=== PATIENT | female | born 1990 | race Caucasian/White ===

== ENCOUNTER → 2018-07-05 14:11 | Outpatient (BNVA) | payer MEDICARE, MEDICAID, SELFPAY | PROVIDERS: PCP Family Medicine; Visit Provider Psychiatry & Neurology Neurology | DX: G91.9 Hydrocephalus, unspecified (principal); I10 Essential (primary) hypertension | CPT/HCPCS: 99213 ==

== ENCOUNTER 2018-08-31 13:51 | Outpatient (REF) | payer MEDICARE, MEDICAID, SELFPAY ==
--- NOTE | 2018-08-31 13:00 | PAPFT_PTH ---
PATIENT: Radha Rodrigues LOC: [facility] U#:[id number] AGE/SX: 28/F ROOM: RE08/31/[address]: [place] : 1990 BED: DIS: 08/31/2018 SPEC #: [id number] RECD: 08/31/18 18:16 STATUS: ECTOR REQ #: [id number] IDA: 08/31/18 13:[address]: Nevaeh Menchaca [facility] Cytology RECD BY: Cyndie Olivier ENTERED: 08/31/18 18:16 SP TYPE: PAPFT IFEOMA DR: Jazmyne Avalos MD Tissues: 1 - CX/ENDOCX FOR PAP SMEARS Procedures: PAP THIN PREP/UVM Screening HPV DNA PROBE Comments: [id number]
== END 2018-08-31 14:11 ==
LOC: LBN 13:51
PROVIDERS: PCP Family Medicine; Visit Provider Nurse Practitioner Family
DX: Z12.4 Encounter for screening for malignant neoplasm of cervix (principal); Z11.51 Encounter for screening for human papillomavirus (HPV)
CPT/HCPCS: 88142; 87624

== ENCOUNTER 2018-12-21 01:20 | Outpatient (CLI) | payer MEDICARE, MEDICAID, SELFPAY ==
[2018-12-21 13:55] LABS: TSH 3.83 uIU/mL (0.358-3.74)
== END 2018-12-21 01:40 ==
PROVIDERS: PCP Family Medicine; Visit Provider Family Medicine
DX: E03.9 Hypothyroidism, unspecified (principal)
CPT/HCPCS: 36415; 84443

== ENCOUNTER → 2019-07-04 13:59 | Outpatient (BNVA) | payer MEDICARE, MEDICAID, SELFPAY | PROVIDERS: PCP Family Medicine; Referring Provider Family Medicine; Visit Provider Psychiatry & Neurology Neurology | DX: G91.9 Hydrocephalus, unspecified (principal); E66.9 Obesity, unspecified | CPT/HCPCS: 99214 ==

== ENCOUNTER 2019-10-16 07:00 | Outpatient (CLI) | payer MEDICARE, MEDICAID, SELFPAY ==
[2019-10-16 12:53] LABS: ALT 23 U/L (14-59); AST 12 U/L (15-37); Albumin 3.9 g/dL (3.4-5.0); Alkaline Phosphatase 70 U/L (46-116); Anion Gap 7.1 mmol/L (3-11); BUN 17 mg/dL (7-18); Bilirubin, Total 0.6 mg/dL (0.2-1.0); CO2 28.9 mmol/L (21.0-32.0); CREATININE 1.02 mg/dL (0.55-1.02); Calcium 8.6 mg/dL (8.5-10.1); Calculated LDL 118 mg/dL (<100); Chloride 105 mmol/L (98-107); Cholesterol 210 mg/dL (<200); Glucose 83 mg/dL (74-106); HDL Cholesterol 51 mg/dL (40-60); Potassium 4.9 mmol/L (3.5-5.1); Sodium 141 mmol/L (136-145); Triglyceride 209 mg/dL (<150)
== END 2019-10-16 07:20 ==
PROVIDERS: PCP Family Medicine; Visit Provider Family Medicine
DX: E03.9 Hypothyroidism, unspecified (principal); R53.83 Other fatigue; F31.9 Bipolar disorder, unspecified; E66.9 Obesity, unspecified
CPT/HCPCS: 36415; 80053; 80061; 84443

== ENCOUNTER → 2020-07-09 13:16 | Outpatient (BNVA) | payer MEDICARE, MEDICAID, SELFPAY | PROVIDERS: PCP Family Medicine; Referring Provider Family Medicine; Visit Provider Psychiatry & Neurology Neurology | DX: G91.8 Other hydrocephalus (principal); G80.9 Cerebral palsy, unspecified; R26.9 Unspecified abnormalities of gait and mobility; I10 Essential (primary) hypertension | CPT/HCPCS: 99213 ==

== ENCOUNTER 2020-09-29 18:12 | Outpatient (REF) | payer MEDICARE, MEDICAID, SELFPAY ==
[2020-09-29 21:14] LABS: HCT 47.2 % (36.0-46.0); HGB 15.2 g/dL (11.2-15.7); MCHC 32.2 % (32.0-36.0); MCV 87.1 fL (80-95); Platelet Count 235 10^3/uL (130-400); RBC 5.42 10^6/uL (3.93-5.22); RDW 13.7 % (11.7-14.6); RDW-SD 43.8 fL; WBC 10.65 10^3/uL (4.4-10.8)
[2020-09-29 21:47] LABS: Ferritin 196 ng/mL (8-252); Magnesium 1.7 mg/dL (1.8-2.4); TSH 2.63 uIU/mL (0.36-3.74)
[2020-09-29 22:30] LABS: Iron 41 ug/dL (50-170); Total Iron Binding Capacity 270 ug/dL (250-450); Transferrin Sat 15 % (15-50)
[2020-09-30 17:57] LABS: FSH 5.4 mIU/mL (See Note); LH 8.9 mIU/mL (See Note)
[2020-10-03 19:07] LABS: 17-Hydroxyprogesterone <40 ng/dL
== END 2020-09-29 18:32 ==
LOC: NCHCN 18:12
PROVIDERS: Nurse Practitioner Family; PCP Family Medicine; Visit Provider Family Medicine
DX: R63.8 Other symptoms and signs concerning food and fluid intake (principal); Z86.2 Personal history of diseases of the blood and blood-forming organs and certain disorders involving the immune mechanism; E83.42 Hypomagnesemia; E03.9 Hypothyroidism, unspecified
CPT/HCPCS: 85027; 82728; 83001; 83002; 83498; 83540; 83550; 83735; 84146; 84443

== ENCOUNTER → 2021-09-22 13:02 | Outpatient (BNVA) | payer MEDICARE, MEDICAID, SELFPAY | PROVIDERS: PCP Family Medicine; Referring Provider Family Medicine; Visit Provider Psychiatry & Neurology Neurology | DX: G91.9 Hydrocephalus, unspecified (principal); G80.9 Cerebral palsy, unspecified; Z98.2 Presence of cerebrospinal fluid drainage device | CPT/HCPCS: 99213 ==

== ENCOUNTER 2024-06-08 20:06 | Emergency (ER) | payer MEDICARE, MEDICAID, SELFPAY ==
--- NOTE | 2024-06-08 20:35 | W.ED.GENAD ---
Discharge Plan Discharge Details Chief Complaint: PsychEval Primary Care Provider: Yuniel Carrasco ED Provider: Smith Tripathi Home Meds and New Rx's Prescriptions: No Action sertraline 100 mg tablet 100 mg PO DAILY quetiapine [Seroquel] 100 mg tablet 100 mg PO QHS norethindrone (contraceptive) 0.35 mg tablet 0.35 mg PO DAILY quetiapine [Seroquel] 25 mg tablet 50 mg PO DAILY PRN acetaminophen [Tylenol] 325 MG tablet 2 tab PO PRN prazosin 1 MG capsule 1 mg PO HS trazodone 50 MG tablet 50 mg PO HS magnesium hydroxide [Milk of Magnesia] 400 MG/5 ML suspension 30 ml PO PRN Lastacaft 0.25 % drops 1 drp Ophthalmic DAILY PRN (Reason: itching) Qty: 2 fexofenadine 180 mg tablet 180 mg PO DAILY Qty: 90 4RF ascorbic acid (vitamin C) 500 mg tablet 500 mg PO DAILY Qty: 90 3RF levothyroxine 25 mcg tablet 25 mcg PO DAILY Qty: 90 3RF ferrous sulfate 325 mg (65 mg iron) tablet 325 mg PO DAILY Qty: 90 1RF Rx Instructions: take one tablet daily cholecalciferol (vitamin D3) 50 mcg (2,000 unit) capsule 50 mcg PO DAILY Qty: 90 3RF HPI General Date/Time Provider Initiated Documentation: 06/08/24 20:09. Information obtained by: patient. History of Present Illness 34 year old F presents to the emergency department with the chief complaint of thoughts of self harm, Patient started experiencing this month(s) (1) and it has been constant. No relieving factors improve symptom(s), No exacerbating factors reported . Patient notes no other symptoms.. Patient did receive the following treatments prior to arrival, none Related Data Home Medications ?Medication ?Instructions ?Recorded ?Confirmed acetaminophen 325 mg tablet 2 tab PO PRN 12/28/12 09/22/21 (Tylenol) prazosin 1 mg capsule 1 mg PO HS 07/10/14 09/22/21 trazodone 50 mg tablet 50 mg PO HS 12/25/14 09/22/21 magnesium hydroxide 400 mg/5 mL 30 ml PO PRN 05/10/17 09/22/21 oral suspension (Milk of Magnesia) alcaftadine 0.25 % eye drops 1 drp ophthalmic (eye) DAILY PRN 10/02/19 09/22/21 (Lastacaft) itching ##2 quetiapine 100 mg tablet (Seroquel) 100 mg PO QHS 09/29/20 09/22/21 sertraline 100 mg tablet 100 mg PO DAILY 09/29/20 09/22/21 fexofenadine 180 mg tablet 180 mg PO DAILY #90 tabs 04/29/21 09/22/21 ascorbic acid (vitamin C) 500 mg 500 mg PO DAILY #90 tabs 05/29/21 09/22/21 tablet norethindrone (contraceptive) 0.35 0.35 mg PO DAILY 06/08/21 09/22/21 mg tablet quetiapine 25 mg tablet (Seroquel) 50 mg PO DAILY PRN 06/08/21 09/22/21 levothyroxine 25 mcg tablet 25 mcg PO DAILY #90 tab-caps 07/21/21 09/22/21 ferrous sulfate 325 mg (65 mg 325 mg PO DAILY #90 tabs 09/14/21 09/22/21 iron) tablet cholecalciferol (vitamin D3) 50 50 mcg PO DAILY #90 caps 10/13/21 mcg (2,000 unit) capsule Previous Rx's ?Medication ?Instructions ?Recorded fexofenadine 180 mg tablet 180 mg PO DAILY #90 tabs 04/29/21 ascorbic acid (vitamin C) 500 mg 500 mg PO DAILY #90 tabs 05/29/21 tablet levothyroxine 25 mcg tablet 25 mcg PO DAILY #90 tab-caps 07/21/21 ferrous sulfate 325 mg (65 mg 325 mg PO DAILY #90 tabs 09/14/21 iron) tablet cholecalciferol (vitamin D3) 50 50 mcg PO DAILY #90 caps 10/13/21 mcg (2,000 unit) capsule Allergies Allergy/AdvReac Type Severity Reaction Status Date / Time amoxicillin trihydrate (From Allergy Unknown unknown Verified 09/22/21 13:06 Augmentin) doxycycline Allergy Unknown rash Verified 09/22/21 13:06 potassium clavulanate (From Allergy Unknown unknown Verified 09/22/21 13:06 Augmentin) General Stated Complaint: PsychEval KOTA: 2 Review of Systems All systems reviewed & are unremarkable except as noted in HPI and below Constitutional Constitutional: Denies chills, Denies fever(s) and Denies weakness Cardiovascular Cardiovascular: Denies chest pain and Denies dyspnea Respiratory Respiratory: Denies cough and Denies dyspnea Gastrointestinal Gastrointestinal: Denies abdominal pain, Denies nausea and Denies vomiting Neurologic Neurologic: Denies weakness Psychiatric Psychiatric: Reports depression Exam Const General: no acute distress Orientation: alert HENMT Head: normal to inspection Ears: external ears normal General nose exam: external nose normal Mouth: moist mucous membranes Eyes General: appearance normal, both eyes and all related structures Neck Neck: normal visual inspection Resp Effort & Inspection: normal respiratory effort and able to speak in complete sentences Cardio Rate: regular rate Skin General skin exam: no rashes or lesions noted Neuro General: patient alert and patient oriented x3 Extrem General: normal to inspection Psych Attitude: cooperative Course Vital Signs Vital signs: Temperature Source Temporal Artery Scan 06/08/24 20:18 Respiratory Effort Normal 06/08/24 20:28 Blood Pressure Position Sitting 06/08/24 20:18 Oxygen Delivery Method Room Air 06/08/24 20:18 Oxygen Flow Rate 0 06/08/24 20:18 Pain Level 0 06/08/24 20:18 Medical Decision Making 34-year-old female with a history of autism, cerebral palsy, bipolar who comes in with thoughts of self-harm. She says she has thoughts of wanting to overdose on pills. She has actually acted on these thoughts. She was brought in by her community support worker. She is currently, cooperative answering all questions appropriately, has no concerning findings on exam. Will check screening labs and mental health evaluate her patient pending eval, will be signed out to oncoming provider pending assessment. Differential Diagnosis Differential Diagnosis: Depression, SI Lab Data Lab results reviewed: Yes I reviewed the patient's lab results. Quality:SDOH Health Related Social Needs: No Data to Display PFSH All Active Problems Amenorrhea (Acute) Abnormal gait (Acute) Obesity (Acute) Smoker (Acute) Posttraumatic stress disorder (Acute) Polycystic ovaries (Acute) Increased body mass index (Acute 12/20/13) Hypothyroidism (Acute 04/16/13) Hydrocephalus (Acute 04/02/15) congenital- post FOOTWEAR FACTORY WORKER shunt (age 2) Dysmetabolic syndrome X (Acute) Depressive disorder (Acute) multiple suicide attemps; homicidal behavior Cerebral palsy (Acute) Bipolar disease, chronic (Acute) Autistic disorder (Acute) spectrum Acne (Acute) Medical History Cognitive developmental delay Hyperlipidemia Hypertension Mood disorder Surgical History S/P eye surgery age 2 S/P FOOTWEAR FACTORY WORKER shunt S/P wisdom tooth extraction age 21 Family History Mother Diabetes Stroke Grandfather No problems noted. Grandmother No problems noted. Social History Smoking/Tobacco Use Status: Current every day Tobacco: How many years used: 13 Quit status: not considering quitting Smoking risk assessment performed?: Yes Alcohol Intake: never Drug use: Never Substance use type: does not use Household members: caregiver Housing: other Communication Needs: Corrective Lenses current occupation: Disabled Pets and animals: No Sexually active: No Do you think of yourself as: lesbian/shoemaker/homosexual Current gender identity: female What is your relationship status?: never How often do you talk on the phone with friends or family?: never How often do you get together with friends or relatives?: never How often do you attend oriental orthodox or restoration services?: decline to answer Panel score (0-1 are the most socially isolated patients): 0 Seatbelt use: always Helmet use: Yes Helmet use: always Do you feel safe in your relationship?: Yes Additional Social history: Her room service food service attendant is Jessica Maldonado. Her POA/guardian is aTbatha Redd. Her business case analyst is Alison (since 2015). Was previously living with Nettie Rodrigues (foster mom) from [phone] (Radha consider her mom; she was too old to be adopted but changed her last name to be same in 2015). In April 2019, she sought changed and moved in with caregiver Annette in [place]. History History 0 Para Hx # Term Pregnancies Multiple births Hx # Pregnancies Ectopic pregnancies AB induced Hx Number of Living Children AB spontaneous
[2024-06-08 20:46] LABS: Abs Immature Grans 0.07 10^3/uL (0.0-0.06); Absolute Basophil Count 0.06 10^3/uL (0.0-0.2); Absolute Eosinophil Count 0.26 10^3/uL (0.0-0.7); Absolute Lymphocyte Count 1.83 10^3/uL (1.2-3.4); Absolute Monocyte Count 0.38 10^3/uL (0.1-0.8); Absolute Neutrophil Count 4.44 10^3/uL (1.2-6.7); Basophils % 0.9 %; Eosinophils % 3.7 %; HCT 42.4 % (36.0-46.0); HGB 13.5 g/dL (11.2-15.7); MCH 27.9 pg (27.0-33.0); MCHC 31.8 % (32.0-36.0); MCV 88 fL (80-95); MPV 8.8 fL (8.0-11.0); Monocytes % 5.4 %; Platelet Count 145 10^3/uL (130-400); RBC 4.84 10^6/uL (3.93-5.22); RDW 15.1 % (11.7-14.6); RDW-SD 48.4 fL; WBC 7.04 10^3/uL (4.4-10.8)
[2024-06-08 21:07] LABS: Salicylate 4.2 mg/dL (<2.8)
[2024-06-08 21:09] LABS: Acetaminophen < 2 ug/mL (10-30)
[2024-06-08 21:10] LABS: ALT 67 U/L (14-59); AST 27 U/L (15-37); Albumin 3.2 g/dL (3.4-5.0); Alkaline Phosphatase 119 U/L (46-116); Anion Gap 10.8 mmol/L (3-11); BUN 8 mg/dL (7-18); Bilirubin, Total 0.68 mg/dL (0.2-1.0); CO2 28.2 mmol/L (21.0-32.0); CREATININE 0.9 mg/dL (0.55-1.02); Calcium 9.6 mg/dL (8.5-10.1); Chloride 101 mmol/L (98-107); Estimated GFR 84.97 (mL/min/1.73m2); Glucose 263 mg/dL (74-106); Potassium 3.8 mmol/L (3.5-5.1); Sodium 140 mmol/L (136-145); TSH (W/Ref FT4) 2.39 uIU/mL (0.36-3.74); Total Protein 7.2 g/dL (6.4-8.2)
[2024-06-08 21:12] LABS: ETHANOL BLOOD < 3.0 mg/dL (<10)
[2024-06-08 21:23] LABS: Bilirubin Negative (Negative); Blood Negative (Negative); Clarity Clear (Clear); Glucose Negative (Negative); Ketones Negative (Negative); Leukocyte Esterase Negative (Negative); Nitrite Negative (Negative); Specific Gravity 1.015 (1.005-1.025); Urobilinogen 0.2 mg/dL (Up to 0.2); pH 5.5 (5-8)
[2024-06-08 21:42] LABS: *AMPHETAMINES SCREEN URINE Negative (Negative); *BARBITURATES SCREEN URINE Negative (Negative); *BENZODIAZEPINES SCREEN URINE Positive (Negative); Cannabinoids THC Negative (Negative); Cocaine Screen,Urine Negative (Negative); METHADONE URINE SCREEN Negative (Negative); OPIATES URINE SCREEN Negative (Negative)
[2024-06-08 21:44] LABS: Tricyclic Antidepressants Negative (Negative)
--- NOTE | 2024-06-09 00:25 | W.EDPROG ---
Date of service: 06/09/24 Time of Service: 00:25 Medical Decision Making Patient is been seen and assessed by mental health advocate. Mental health advocate has evaluated the patient would like to safety plan for home. We do agree with this. Safety plan has been administered, patient agrees with plan. Patient stable for discharge. No evidence of homicidal or suicidal ideations. I have extensively reviewed the treatment plan and discharge instructions with the patient. I have addressed all patient concerns at this time. The patient was made aware of what symptoms to monitor for that would warrant a return to the emergency department. Discussed the plan with the patient, they demonstrate verbal understanding and agreement with our assessment and plan at this time. The documentation in this chart was dictated using [employer] dictation software. Please excuse any dictation errors. Quality:SDOH Health Related Social Needs: No Data to Display Sign Out Sign Out Data: Sign Out Comment: Chronic history of psychiatric issues including bipolar, has a history of autism as well, reportedly has been having thoughts of self-harm. Labs unremarkable, pending mental health evaluation Last updated by Smith Tripathi MD at 06/08/24 23:19 Discharge Plan Disposition Patient Disposition: Home Condition: Good Discharge Details Clinical Impression: Bipolar disease, chronic Primary Care Provider: Yuniel Carrasco ED Provider: Surjit Romero Home Meds and New Rx's Prescriptions: No Action sertraline 100 mg tablet 100 mg PO DAILY quetiapine [Seroquel] 100 mg tablet 100 mg PO QHS norethindrone (contraceptive) 0.35 mg tablet 0.35 mg PO DAILY quetiapine [Seroquel] 25 mg tablet 50 mg PO DAILY PRN acetaminophen [Tylenol] 325 MG tablet 2 tab PO PRN prazosin 1 MG capsule 1 mg PO HS trazodone 50 MG tablet 50 mg PO HS magnesium hydroxide [Milk of Magnesia] 400 MG/5 ML suspension 30 ml PO PRN Lastacaft 0.25 % drops 1 drp Ophthalmic DAILY PRN (Reason: itching) Qty: 2 fexofenadine 180 mg tablet 180 mg PO DAILY Qty: 90 4RF ascorbic acid (vitamin C) 500 mg tablet 500 mg PO DAILY Qty: 90 3RF levothyroxine 25 mcg tablet 25 mcg PO DAILY Qty: 90 3RF ferrous sulfate 325 mg (65 mg iron) tablet 325 mg PO DAILY Qty: 90 1RF Rx Instructions: take one tablet daily cholecalciferol (vitamin D3) 50 mcg (2,000 unit) capsule 50 mcg PO DAILY Qty: 90 3RF Discharge Instructions Instructions: Suicide prevention Additional Instructions: Please abide by the safety plan that has been agreed upon by yourself any associated parties. Please follow-up closely with your mental health advocates. If you notice any worsening of your symptoms, or any new symptoms such as vomiting, diarrhea, fever, chills, shortness of breath, chest pain, numbness, weakness, or fainting , please return immediately to the emergency department for reevaluation. Please follow up with your primary care provider as soon as possible for reassessment and reevaluation. As always, it was a pleasure participating in your medical care today. Referrals: Yuniel Carrasco NP [Primary Care Provider] -
--- NOTE | 2024-06-09 08:17 | NUR.NOTE ---
Left message on luis's phone for her to return call to ED.
--- NOTE | 2024-06-09 08:48 | NUR.NOTE ---
Caregiver, Lydia, advised that Tabatha Redd is no longer the patient's guardian. Shanique Loomis is now patient's state appointed guardian. Spoke with Shanique and let her know that patient had been seen overnight in ED and was being discharged home on a safety plan. Shanique requested a copy of discharge paperwork be faxed to her along with the signature sheet, this information was sent to her.
--- NOTE | 2024-06-09 08:54 | NUR.NOTE ---
Addendum entered by Carolyn Narvaez 06/11/24 13:46: Paperwork faxed on this date 06/11/24. Original Note: Faxed discharge packet, signature page and Safety Contract to Guardian, Shanique Mccarty at [phone]. Her phone number is [phone]
--- NOTE | 2024-06-09 12:03 | TELEP.MEDREC ---
Date of service: 06/09/24 [facility] Allergies: amoxicillin trihydrate (From Augmentin) Allergy (Unknown, Verified 06/09/24 08:41) unknown doxycycline Allergy (Unknown, Verified 06/09/24 08:41) rash potassium clavulanate (From Augmentin) Allergy (Unknown, Verified 06/09/24 08:41) unknown Interview Person Interviewed: Lydia, caregiver Quality Quality of Interview/Accuracy of Medication List: Excellent Sources Sources used to compile medication list: [employer] Medication List, Patient List and [employer] Changes made to Home Medication List: ADDITIONS: Lamotrigine Abilify Glucophage Albuterol Diazepam Trazodone Olanzapine DELETIONS: Lastacaft Ferrous sulfate MOM Norethindrone Sertraline Additional Notes Additional Notes: Prazosin to 3mg HS Levothyroxine to 100mcg daily Recommended Changes Attestation: The home medication list is now updated to the best of my knowledge and is ready to be reconciled by the provider. Please contact the [facility] Medication Reconciliation Pharmacist at for any questions.
--- NOTE | 2024-06-11 13:46 | NUR.NOTE ---
See addendum to Judith Gregory note. Nursing Note:
== END 2024-06-09 08:52 | disposition home or self-care (01) ==
PROVIDERS: Emergency Medicine; Emergency Provider Student in an Organized Health Care Education/Training Program; PCP Nurse Practitioner Family
DX: R45.851 Suicidal ideations (principal); G80.9 Cerebral palsy, unspecified; F31.9 Bipolar disorder, unspecified; Z79.899 Other long term (current) drug therapy
CPT/HCPCS: 00123; 80053; 80307; 81025; 99285; 80320; 80329; 81003; 84443; 85025; 99284